=== PATIENT | female | born 1980 | race Caucasian/White ===

== ENCOUNTER 2017-05-30 05:35 | Day surgery (SDC) | payer OTHER ==
[~2017-05-30] VITALS: Ht 167.6 cm; Wt 69.4 kg
[~2017-05-30 05:35] MED LIST: IBUPROFEN800 MG PO; NORCO 5-325 TA1 EACH PO
--- NOTE | 2017-05-30 09:17 | NUR ---
05/30/17 0917 Ifrah Mcrae REPORT FROM [facility]NALY[employer].
--- NOTE | 2017-05-30 10:13 | NUR ---
PT IS BACK TO DS FROM PACU. PT REPORTS BEING IN A LOT OF PAIN. SHE IS UNSURE IF SHE WANTS HER MOM TO COME BACK TO HER ROOM. SHE WOULD LIKE TO HAVE HER SIGNIFICANT OTHER CALLED TO LET HIM KNOW HOW SHE IS DOING. CALL LIGHT IS WITHIN REACH. WATER NO BEDSIDE TABLE. PT QUICKLY FALLS TO SLEEP AND BEGINGS TO LIGHTLY SNORE WITHOUT ANY STIMULATION. WILL REASSESS WITHIN THE HOUR. PT HAS REQUESTED SOMETHING FOR THE PAIN.
[2017-05-30] MEDS ORDERED: PERCOCET 5-3251 EACH PO (10:24)
--- NOTE | 2017-05-30 10:42 | NUR ---
PT'S SIGNIFICANT OTHER IS CALLED TO UPDATE HIM ON HOW PT IS DOING. HE IS IN THE BUILDING AND NOTIFIED HE IS ALLOWED TO COME BACK TO HER ROOM. HE IS GIVEN THE RX FOR PAIN MEDICATIONS. PT'S SIGNIFICANT OTHER AND MOM AND EDUCATED ON DISCHARGE CRITERIA AND THE PLAN FOR TODAY, THEY REPEAT BACK VERBAL UNDERSTANDING. PT C/O'S OF NEEDING TO PEE SHE IS EDUCATED THAT SHE HAS A COTO IN PLACE AND IT WILL EMPTY HER BLADDER FOR HER. SHE IS ALSO EDUCATED THAT THE TUBE ITSELF CAN BE IRRITATING AND MAKE HER FEEL LIKE SHE NEEDS TO PEE. SHE IS EDUCATED THAT SOON SHE IS ABLE TO STAND AND WALK A FEW STEPS. PT'S SIGNIGICANT OTHER COMES OUT TO DESK AND REPROTS THAT PT IS COLD. MARSHALL HUGGER IS TURNED ON AND PT'S COMPANY IS EDUCATED ON HOW TO OPERATE IT.
--- NOTE | 2017-05-30 11:18 | NUR ---
PT'S MOM IS AT THE BEDSIDE. PT REPORT TINGLING IN HER HANDS. SHE ASKS TO HAVE MARSHALL HUGGER TURNED OFF. PT REQUESTING TO STAND UP TO HAVE CATHETER REMOVED. NO OTHER C/O'S AT THIS TIME. WILL REASSESS WITHIN THE HOUR.
--- NOTE | 2017-05-30 11:31 | NUR ---
PT ASSISTED TO STANDING POSITION TO HAVE COTO CATHETER REMOVED. SHE REPROTS BEING NAUSEATED AND DIZZY SITTING AT THE EDGE OF THE BED, SHE IS ENCOURAGED TO TAKE HER TIME AND STAND WHEN READY. SHE CONTINUES TO BE NAUSEATED WHILE STANDING, BUT TOLERATES THE REMOVAL OF CATHETER WELL. SHORTLY AFTER REMOVAL PT REPORTS THAT SHE IS GOING TO BE SICK. THERE ARE NO EMESIS BAGS IN ROOM AND SHE THROWS UP IN SINK, THIS RN ASKS FOR HELP IN RETREIVING AN EMESIS BAG. SHE IS ASSISTED BACK TO BED AND OFFERED SALTINE CRACKERS. SHE ALSO REQUESTS A 7UP. SHE IS REPORTING MORE PAIN IN HER ABDOMEN AND REQUESTS PAIN MEDICATION.
--- NOTE | 2017-05-30 11:43 | NUR ---
CHICA NAJERA'D WNL. INO YELLOW URINE IN BAG. APPROXIMATELY 200ML'S.
--- NOTE | 2017-05-30 12:43 | NUR ---
UP TO BR UNABLE TO VOID BLADDER SCANNED 0. C/O NAUSEA PHENERGAN GIVEN.
--- NOTE | 2017-05-30 13:34 | NUR ---
PT'S SIGNIFICANT OTHER IS AT THE BEDSIDE. PT REPROTS NEEING TO TRY AND USE THE RESTROOM AGAIN. STILL HAS PAIN IN LOWER ABDOMEN RATING IT A 6 OR 7 OUT OF 10. NAUSEA IS BETTER. SHE IS ENCOURAGED TO EAT MORE CRACKERS SO SHE CAN TAKE AN ORAL PAIN PILL. CALL LIGHT IS WITHIN REACH. NO OTHER C/O'S AT THIS TIME. SHE DOES STATE SHE IS ABLE TO SLEEP AND THAT IS GOOD.
--- NOTE | 2017-05-30 14:10 | NUR ---
PT STILL UNABLE TO URINATE. SHE HASN'T DRANK A WHOLE LOT OF FULIDS, DUE TO BEING SLEEPING. NEW IV BAG NIKI, WILL RECHECK IN 30MINS TO SEE IF SHE NEEDS TO USE THE RESTROOM.
--- NOTE | 2017-05-30 15:04 | NUR ---
CHECKED ON PT TO SEE IF SHE WOULD LIKE TO GET UP AND URINATE. SHE IS UNABLE TO DO SO. BLADDER SCANNED FOR 140ML'S. RECONNECTED HER TO HER IV AND TURNED OUT THE LIGHTS. GAVE PT A WARM BLANKET AND LEFT ROOM TO LET HER NAP.
--- NOTE | 2017-05-30 15:55 | NUR ---
KARINA 1345: PT ASSISTED UP OOB TO THE RESTROOM. SHE IS ABLE TO URINATE ON HER OWN. SHE REPROTS THAT SHE WOULD LIKE TO GO HOME. SUPPLIES ARE GATHERED TO REMOVE HER IV AND HER DC INSTRUCTIONS ARE COLLECTED. SHE AND HER SIGNIFICANT OTHER ARE GIVEN VERBAL DC INSTRUCTIONS. THEY ARE BOTH ABLE TO VERBALIZE UNDERSTANDING. THEY ARE ABLE TO ASK QUESTIONS, WHICH ARE THEN ANSWERED. INSTRUCTIONS ARE GIVEN ON HOW TO BEST GET DRESSED AND TO LET RN KNOW IF THEY NEED HELP.
--- NOTE | 2017-05-31 17:03 | OR ---
[facility] [address] [place] [id number] Signed DATE OF OPERATION: 05/30/2017 SURGEON: Jairo Valentine MD NOTE: Patient of Dr. Valentine. PREOPERATIVE DIAGNOSES: Endometriosis of pelvic peritoneum, pelvic pain, dysmenorrhea, dyspareunia, and heavy menstrual bleeding. POSTOPERATIVE DIAGNOSES: Endometriosis of pelvic peritoneum, pelvic pain, dysmenorrhea, dyspareunia, and heavy menstrual bleeding. PROCEDURE: Total laparoscopic hysterectomy with bilateral salpingo-oophorectomy and cystoscopy. SURGEON: Jairo Valentine MD PROSPECTING OBSERVER: Dr. Ordonez. ANESTHESIA: General. ESTIMATED BLOOD LOSS: 150 mL. SPECIMEN: Uterus, both fallopian tubes, and both ovaries. DRAINS: Chris to bladder. FINDINGS: Normal cervix. Normal size and shape of the uterus. The anterior cul-de-sac was free of any endometriosis or adhesions. The posterior cul-de-sac was free of any endometriosis or adhesions except for one area of deep clear endometriosis on the right uterosacral Electronically Signed By: JAIRO VALENTINE MD 05/31/17 1703 PATIENT NAME: BIJU JIMENEZ OPERATIVE REPORT DATE OF : 76 PHYSICIAN: JAIRO VALENTINE MD REPORT #: [id number] REPORT IS CONFIDENTIAL AND NOT TO BE RELEASED WITHOUT AUTHORIZATION [address] [address] Signed ligament. The left tube was normal in length and normal pink fimbriated end and had few paratubal cysts present. The left ovary is normal size and shape without any evidence of endometriosis or adhesions. The infundibulopelvic ligament did appear to bypass the ovary and joined utero-ovarian ligament. Otherwise, there was no endometriosis or adhesions on the left ovary. The left pelvic sidewall though did have several deep endometrial implants behind the ovary and several right over the left ureter. There were no adhesions present. The right tube was normal length and normal pink fimbriated end and no adhesions. Did again have a small paratubal cyst present. The right ovary is normal size and shape without any evidence of endometriosis or adhesions. Again, the infundibulopelvic ligament seem to bypass the ovary and joined the utero-ovarian ligament into the uterus. The rest of the pelvis appeared normal with no endometriosis or adhesions or mass is seen. DESCRIPTION: The patient was brought in to the operating room, placed supine position. After adequate general anesthesia was obtained, she was placed in a dorsal lithotomy position, prepped and draped in usual sterile fashion. A weighted speculum was placed in the vagina and the anterior lip of the cervix grasped with an Allis clamp. The uterine cavity was sounded to 9 cm and then the cervix slightly dilated. The [employer]Care uterine manipulator was placed through the endocervical canal into the uterus and the balloon filled with sterile water. The weighted speculum and Allis clamp were removed, and the cervical cap slid up the manipulator and placed around the cervix and then the vaginal cuff slid up and against the cervical cap and tightened in place to hold the cervical cap against the cervix. Chris catheter was placed in the bladder. Attention was then drawn to the abdomen. A small infraumbilical skin incision was made through previous surgical scar after injecting the area with 0.5% Marcaine. The subcutaneous tissue was dissected with Metzenbaum scissors and the fascia grasped, hemostats elevated and nicked with Metzenbaum scissors and extended in the transverse fashion using Metzenbaum scissors. The peritoneum was opened using blunt dissection. Retention stitches of 0 Vicryl suture were placed above and below the incision. S-retractor inserted into the incision and spun 360 degree fashion showing good placement in the abdomen. The Kris cannula and sleeve then entered the abdomen along the S-retractor and then the S-retractor was removed and the sleeve tightened in place using retention stitches. Trocar was removed and the laparoscope with Video attachment entered the abdomen under direct visualization. Above findings were noted. On the left lateral side, a small incision was made after transilluminating the abdomen to avoid any vessels. The area was injected with 0.5% plain Marcaine and small skin incision made with a scalpel, then a 5 mm bladed trocar and sleeve entered into the abdomen under Electronically Signed By: JAIRO VALENTINE MD 05/31/17 1703 PATIENT NAME: BIJU JIMENEZ OPERATIVE REPORT DATE OF : 76 PHYSICIAN: JAIRO VALENTINE MD REPORT #: [id number] REPORT IS CONFIDENTIAL AND NOT TO BE RELEASED WITHOUT AUTHORIZATION [facility] [address] [place] [id number] Signed direct visualization. The trocar was removed and the blunt probe inserted. On the right side, again the lateral port was placed by transilluminating the abdominal wall to avoid any vessels injecting the area with 0.5% Marcaine and then making a small skin incision with a scalpel. A Veress needle with expandable sleeve was placed into the abdomen under direct visualization. The Veress needle was removed and the 12 mm port with expandable trocar was placed through the expandable sleeve stretching the fascia open and the trocar then removed and a 2nd blunt grasper inserted. The above findings were confirmed. The left infundibulopelvic ligament was identified and again seemed to be going past the ovary, but was grasped and the ureter was identified below the ovary and ureter noted to be pulled up and scarred from endometriosis under the ovary. The rest of the dissection was carried out with the [employer] [place] forceps, bipolar cautery and the left infundibulopelvic ligament cauterized in several places and cut and then the ovary was elevated away and care was taken to cauterize and cut the peritoneum close to the ovary, particularly near the endometriosis over the ureter, which was closed by the ovary, but care was taken to stay as far away from the ureter as possible with the ovary and tube freed from the pelvic sidewall and the dissection was carried into the broad ligament, which then the anterior and posterior leaves of the broad ligament were separately cauterized and cut towards the midline at the level of the cervical cap. With the uterine vessels exposed in the posterior peritoneum dropping the ureter down away from the area of dissection, the uterine vessels could be cauterized in several places and cut. The paracervical tissue was then cauterized and cut down to the vaginal wall. On the right side, the fallopian tube was grasped, brought medially and the mesosalpinx cauterized and cut down the length of the tube and then the proximal end of the tube cauterized across the tube and cut freeing the tube, which was then pulled out through the right port. The utero-ovarian ligament and the infundibulopelvic ligament which together were cauterized in several places and cut. The round ligament was cauterized and cut, then the broad ligament cauterized and cut. The anterior and posterior leaves of broad ligament were then and separately cauterized and cut and down to the previous dissection in the midline. The uterine vessels were then exposed, and these were cauterized in several places and cut. The paracervical tissue cauterized and cut down to the vaginal wall. The area was irrigated, suctioned, and examined and a good dissection was noted. So the Sonicision was brought into the field and the posterior colpotomy made in the groove of the cup in the posterior cul-de-sac and the vaginal wall cut with the Sonicision posterior to anterior on the left side to the midline and then posterior to anterior on the right side to the midline with this then freeing the uterus and cervix from the vagina. The cervix was held in the cuff and attention drawn down to the vagina where the [employer] uterine manipulator was removed and a weighted speculum was placed in the vagina. The cervix could be seen in the vagina and was grasped with an Allis clamp and pulled out through the vaginal opening. The left tube and ovary and the right ovary were in the Electronically Signed By: JAIRO VALENTINE MD 05/31/17 1703 PATIENT NAME: BIJU JIMENEZ OPERATIVE REPORT DATE OF : 76 PHYSICIAN: JAIRO VALENTINE MD REPORT #: [id number] REPORT IS CONFIDENTIAL AND NOT TO BE RELEASED WITHOUT AUTHORIZATION [facility] [address], [place] [address] Signed posterior cul-de-sac and they could be easily identified and were grasped with Allis clamp and pulled out through the vagina also. A lap sponge inside the glove was then placed in the vagina to be able to re-create pneumoperitoneum. The abdomen was re-insufflated and the entire pelvis irrigated, suctioned, examined noted to have good hemostasis. The vaginal cuff was then closed using the Endo Stitch with barbed suture starting at the right uterosacral ligament and the stitching the posterior vaginal wall and then individually the anterior vaginal wall. With the 1st stitch through the posterior vaginal wall locked by passing the suture through the small loop at the end of the suture, the cuff was then closed from the right side to the left uterosacral ligament. Individually stitching posterior wall and then an anterior wall and taking care to stay within the uterosacral ligaments and to avoid the bladder anteriorly. Once reaching the left uterosacral ligament, the stitch was taken back to the midline to lock the suture in place. Laparoscopic scissors were then used to cut the suture right at the vaginal wall surface. Endo loops of 0 Vicryl were placed on each infundibulopelvic ligament taking sure to include only the infundibulopelvic ligaments and avoid kinking of the ureters. For further support, the entire pelvis was irrigated, suctioned, examined, and noted to have good hemostasis. Cystoscopy was then performed by removing the Chris catheter. A 70-degree cystoscope was placed in the urethra and entered into the bladder under direct visualization. The bladder was examined, noted to fill well. No defects. No sutures or lacerations or bruising were seen, both ureteral orifices were easily identified and both showed good jets of urine. The cystoscope was removed. The Chris placed back in to the bladder. All instruments were then removed from the abdomen. The infraumbilical fascial incision was closed using running stitch of 0 Vicryl suture. There was slight amount of bleeding on the skin edges of these incisions. They were cauterized with the Bovie and then the retention stitches of the infraumbilical incision tied together for further support. The right side did not need any fascial incision because the fascia was closed from the stretching. The 3 skin incisions were closed using 4-0 Vicryl in subcuticular stitches. The sponge and glove were removed from the vagina. Chris left in place. The patient tolerated the procedure well, went to recovery room in good condition. The sponge, needle, instrument count correct at the end of the procedure. Uterus, both tubes and ovaries sent to Pathology for identification. Electronically Signed By: JAIRO VALENTINE MD 05/31/17 1703 PATIENT NAME: BIJU JIMENEZ OPERATIVE REPORT DATE OF : 76 PHYSICIAN: JAIRO VALENTINE MD REPORT #: [id number] REPORT IS CONFIDENTIAL AND NOT TO BE RELEASED WITHOUT AUTHORIZATION [facility] [address] [facility] [place] [address] Signed Jairo Valentine MD MJB/MODL /[id number] cc: XAVIER Wooten Electronically Signed By: JAIRO VALENTINE MD 05/31/17 1703 PATIENT NAME: BIJU JIMENEZ OPERATIVE REPORT DATE OF : 76 PHYSICIAN: JAIRO VALENTINE MD REPORT #: [id number] REPORT IS CONFIDENTIAL AND NOT TO BE RELEASED WITHOUT AUTHORIZATION
== END 2017-05-30 16:00 | disposition home or self-care (01) ==
LOC: OPS 05:35 → DS 05:35 → OPS 06:45 → DS 06:45 → OPS 16:00
PROVIDERS: General Practice
PROC: 0UT94ZZ Resection of Uterus, Percutaneous Endoscopic Approach (ICD-10-PCS; principal; 2017-05-30 06:45)
PROC: 0UT24ZZ Resection of Bilateral Ovaries, Percutaneous Endoscopic Approach (ICD-10-PCS; 2017-05-30 06:45)
PROC: 0UT74ZZ Resection of Bilateral Fallopian Tubes, Percutaneous Endoscopic Approach (ICD-10-PCS; 2017-05-30 06:45)
DX: N83.12 Corpus luteum cyst of left ovary (principal); N83.11 Corpus luteum cyst of right ovary; N83.02 Follicular cyst of left ovary; N83.01 Follicular cyst of right ovary; N83.8 Other noninflammatory disorders of ovary, fallopian tube and broad ligament; G43.909 Migraine, unspecified, not intractable, without status migrainosus; Z98.890 Other specified postprocedural states; Z79.899 Other long term (current) drug therapy
CPT/HCPCS: 00944; J0690; J1100; J1170; J1644; J1885; J2175; J2250; J2270; J2405; J2550; J2704; J3010; J7120